=== PATIENT | female | born 1990 | race American Indian/Alaskan Native ===

== ENCOUNTER 2016-07-28 08:45 | Emergency (ER) | payer OTHER ==
[2016-07-28 10:15] LABS: Basophils % (Auto) 0.8 % (0.0-1.8); Hematocrit 38.3 % (30.3-42.9); Hemoglobin 12.6 gm/dl (10.1-14.3); Mean Corpuscular HGB Conc 33 % (30-34); Mean Corpuscular Hemoglobin 30 pg (28-32); Mean Corpuscular Volume 90 fl (79-97); Platelet Count 306 K/mm3 (140-440); Red Blood Count 4.27 M/mm3 (3.65-5.03); White Blood Count 6.1 K/mm3 (4.5-11.0)
[2016-07-28 10:32] LABS: Anion Gap 17 mmol/L; Blood Urea Nitrogen 5 mg/dL (7-17); Calcium 9.5 mg/dL (8.4-10.2); Carbon Dioxide 23 mmol/L (22-30); Chloride 102.8 mmol/L (98-107); Glucose 89 mg/dL (65-100); Potassium 3.6 mmol/L (3.6-5.0); Sodium 139 mmol/L (137-145)
[2016-07-28] MEDS ORDERED: NACL 0.9% 1000 ML 1,000 ML IV ONE ×2 (11:07→12:10)
--- NOTE | 2016-07-28 11:15 | Emergency Department Report ---
HPI - General Chief Complaint: Arrhythmia/Palpitations Time Seen by Provider: 07/28/16 10:53 - HPI HPI: Room 24 The patient is a 25-year-old female presenting with chief complaint of tachycardia. Patient was reportedly admitted to [facility] 07/24/2016 for unspecified psychosis. The patient's 1013 to nose paranoia, bizarre behavior, responding to internal stimuli. The patient reportedly has been tachycardic since her admission to [facility]. The patient was sent to the ED for evaluation of tachycardia. When asked how she is feeling currently the patient states annoying but otherwise no specific complaints. The patient states while at [facility] she sometime had shortness of breath. Patient states she is uncertain if she ever had chest pain. The patient admitted to vomiting once this morning while brushing her teeth which she describes as normal Location: [see above] Duration: [see above] Quality: Tachycardic Severity: Moderate Modifying factors: [see above] Context: [see above] Mode of transportation: [not driving] ED Past Medical Hx - Past Medical History Previous Medical History?: Yes Hx Psychiatric Treatment: Yes (hallucinations) - Surgical History Past Surgical History?: No - Family History Family history: no significant - Social History Smoking Status: Never Smoker Substance Use Type: None (denies illicit drug use), Alcohol (occasional) ED Review of Systems ROS: Stated complaint: ELEVATED HEART RATE Other details as noted in HPI Comment: All other systems reviewed and negative Constitutional: denies: chills, fever Eyes: denies: eye pain, eye discharge, vision change ENT: denies: ear pain, throat pain Respiratory: shortness of breath Cardiovascular: denies: palpitations Endocrine: no symptoms reported Gastrointestinal: vomiting Genitourinary: denies: urgency, dysuria, discharge Musculoskeletal: denies: back pain, joint swelling, arthralgia Skin: denies: rash, lesions Neurological: denies: headache, weakness, paresthesias Psychiatric: other (history of responding to internal stimuli) Hematological/Lymphatic: denies: easy bleeding, easy bruising Physical Exam - Physical Exam Vital Signs: Vital Signs 07/28/16 07/28/16 07/28/16 09:27 09:30 09:34 Temperature 98.2 F Pulse Rate 120 H 120 H Respiratory 16 17 Rate Blood Pressure 138/85 133/90 O2 Sat by Pulse 97 99 99 Oximetry 07/28/16 07/28/16 07/28/16 10:00 10:31 10:41 Temperature Pulse Rate 143 H 126 H Respiratory 13 11 L 11 L Rate Blood Pressure 143/98 133/91 O2 Sat by Pulse 100 98 98 Oximetry Physical Exam: GENERAL: The patient is well-developed well-nourished female sitting on stretcher not appearing to be in acute distress. [] HEENT: Normocephalic. Atraumatic. Extraocular motions are intact. Patient has moist mucous membranes. NECK: Supple. No meningitic signs are noted. There is no adenopathy noted. CHEST/LUNGS: Clear to auscultation. There is no respiratory distress noted. HEART/CARDIOVASCULAR: Regular. There is tachycardia. There is no gallop rub or murmur. ABDOMEN: Abdomen is soft, nontender. Patient has normal bowel sounds. There is no abdominal distention. SKIN: There is no rash. There is no edema. There is no diaphoresis. NEURO: The patient is awake, alert, and oriented. The patient is cooperative. The patient has no focal neurologic deficits. The patient has normal speech MUSCULOSKELETAL: There is no evidence of acute injury. ED Course Vital Signs 07/28/16 07/28/16 07/28/16 09:27 09:30 09:34 Temperature 98.2 F Pulse Rate 120 H 120 H Respiratory 16 17 Rate Blood Pressure 138/85 133/90 O2 Sat by Pulse 97 99 99 Oximetry 07/28/16 07/28/16 07/28/16 10:00 10:31 10:41 Temperature Pulse Rate 143 H 126 H Respiratory 13 11 L 11 L Rate Blood Pressure 143/98 133/91 O2 Sat by Pulse 100 98 98 Oximetry - Reevaluation(s) Reevaluation #1: 07/28/16 14:04 Patient persistently tachycardic at approximately 110 bpm. Patient status post 2 L IV fluids and 2 mg Ativan IV. Patient is calm but tachycardic ED Medical Decision Making - Lab Data Result diagrams: 07/28/16 10:02 07/28/16 10:02 Laboratory Tests 07/28/16 07/28/16 07/28/16 10:02 10:02 10:02 WBC 6.1 RBC 4.27 Hgb 12.6 Hct 38.3 MCV 90 MCH 30 MCHC 33 RDW 12.0 L Plt Count 306 Lymph % (Auto) 21.7 [place] % (Auto) 10.5 H Eos % (Auto) 4.0 Baso % (Auto) 0.8 Lymph # 1.3 [place] # 0.6 Eos # 0.2 Baso # 0.0 Seg Neutrophils % 63.0 Seg Neutrophils # 3.9 D-Dimer Sodium 139 Potassium 3.6 Chloride 102.8 Carbon Dioxide 23 Anion Gap 17 BUN 5 L Creatinine 0.5 L Estimated GFR > 60 BUN/Creatinine Ratio 10.00 Glucose 89 Calcium 9.5 Total Creatine Kinase 66 Troponin T < 0.010 TSH Free T4 HCG, Qual Urine Color Urine Turbidity Urine pH Ur Specific [place] Urine Protein Urine Glucose (UA) Urine Ketones Urine Blood Urine Nitrite Urine Bilirubin Urine Urobilinogen Ur Leukocyte Esterase Urine WBC (Auto) Urine RBC (Auto) U Epithel Cells (Auto) Urine Mucus Urine Opiates Screen Urine Methadone Screen Ur Barbiturates Screen Ur Phencyclidine Scrn Ur Amphetamines Screen U Benzodiazepines Scrn Urine Cocaine Screen U Marijuana (THC) Screen Drugs of Abuse Note 07/28/16 07/28/16 07/28/16 11:20 11:20 11:20 WBC RBC Hgb Hct MCV MCH MCHC RDW Plt Count Lymph % (Auto) [place] % (Auto) Eos % (Auto) Baso % (Auto) Lymph # [place] # Eos # Baso # Seg Neutrophils % Seg Neutrophils # D-Dimer 820.91 H Sodium Potassium Chloride Carbon Dioxide Anion Gap BUN Creatinine Estimated GFR BUN/Creatinine Ratio Glucose Calcium Total Creatine Kinase Troponin T < 0.010 TSH 0.845 Free T4 1.58 H HCG, Qual Urine Color Urine Turbidity Urine pH Ur Specific [place] Urine Protein Urine Glucose (UA) Urine Ketones Urine Blood Urine Nitrite Urine Bilirubin Urine Urobilinogen Ur Leukocyte Esterase Urine WBC (Auto) Urine RBC (Auto) U Epithel Cells (Auto) Urine Mucus Urine Opiates Screen Urine Methadone Screen Ur Barbiturates Screen Ur Phencyclidine Scrn Ur Amphetamines Screen U Benzodiazepines Scrn Urine Cocaine Screen U Marijuana (THC) Screen Drugs of Abuse Note 07/28/16 07/28/16 07/28/16 11:20 11:23 11:23 WBC RBC Hgb Hct MCV MCH MCHC RDW Plt Count Lymph % (Auto) [place] % (Auto) Eos % (Auto) Baso % (Auto) Lymph # [place] # Eos # Baso # Seg Neutrophils % Seg Neutrophils # D-Dimer Sodium Potassium Chloride Carbon Dioxide Anion Gap BUN Creatinine Estimated GFR BUN/Creatinine Ratio Glucose Calcium Total Creatine Kinase Troponin T TSH Free T4 HCG, Qual Negative Urine Color Yellow Urine Turbidity Cloudy Urine pH 9.0 H Ur Specific [place] 1.006 Urine Protein <15 mg/dl Urine Glucose (UA) Neg Urine Ketones Tr Urine Blood Neg Urine Nitrite Neg Urine Bilirubin Neg Urine Urobilinogen < 2.0 Ur Leukocyte Esterase Lg Urine WBC (Auto) 10.0 H Urine RBC (Auto) 3.0 U Epithel Cells (Auto) 23.0 H Urine Mucus 3+ Urine Opiates Screen Presumptive negative Urine Methadone Screen Presumptive negative Ur Barbiturates Screen Presumptive negative Ur Phencyclidine Scrn Presumptive negative Ur Amphetamines Screen Presumptive negative U Benzodiazepines Scrn Presumptive negative Urine Cocaine Screen Presumptive negative U Marijuana (THC) Screen Presumptive negative Drugs of Abuse Note Disclamer - EKG Data -: EKG Interpreted by Or EKG shows normal: sinus rhythm Rate: tachycardia (118 bpm) - Radiology Data Radiology results: report reviewed (CT chest), image reviewed (CT chest) CT chest (read by radiologist)-no evidence of PE - Differential Diagnosis hyperthyroidism, rhabdomyolysis, dehydration, PE Critical care attestation.: If time is entered above; I have spent that time in minutes in the direct care of this critically ill patient, excluding procedure time. ED Disposition Clinical Impression: Tachycardia, Psychosis Disposition: OP ADMITTED IP TO THIS HOSP Is pt being admited?: Yes Does the pt Need Aspirin: Yes Condition: Fair Referrals: PRIMARY CARE, [Primary Care Provider] - 3-5 Days Time of Disposition: 14:04 (hospitalist paged)
[2016-07-28 12:13] LABS: Urine Drugs of Abuse Note Disclamer
[2016-07-28 12:36] LABS: Bilirubin,Urine NEG (Negative); Blood,Urine NEG (Negative); Ketones,Urine TR mg/dL (Negative); Leukocyte Esterase,Urine LG (Negative); Mucus,Urine 3+ /HPF; Nitrite,Urine NEG (Negative); Protein,Urine <15 mg/dL mg/dL (Negative); Urobilinogen,Urine < 2.0 mg/dL (<2.0)
[2016-07-28] MEDS ORDERED: NACL ONE (12:51)
[2016-07-28] MEDS ORDERED: ATIVAN ONE (13:06)
--- NOTE | 2016-07-28 13:41 | Cat Scan Report ---
CTA CHEST INDICATION: Tachycardia. COMPARISON: None similar at this institution. FINDINGS: Chest CTA performed following intravenous administration of 100 cc of Omnipaque 350. Rotational MIP's also obtained. Normal heart size. No effusions. No aortic aneurysm, dissection or suspicious pulmonary arterial filling defects. No size significant adenopathy. Normal thymic contours. Normal airway. Unremarkable imaged thyroid. Clear lungs. Nonspecific distal esophageal prominence/thickening, not excluded for gastroesophageal reflux and/or hiatal hernia, amongst others. Images through included upper abdomen reveal no significant abnormality. Unremarkable bones. CONCLUSION: No CT evidence of pulmonary embolism with findings, as above. Thank you for the opportunity to participate in this patient's care.
--- NOTE | 2016-07-28 14:05 | Admit Criteria Form ---
Admission Criteria Documentation: TELEMETRY CARE Telemetry Admission Guidelines (Place 'X' for any and all applicable criteria): Admission to telemetry [A] may be indicated for ANY ONE of the following(1)(2)(3 )(4)(5): [X ]I. Cardiac disease, including ANY ONE of the following (9)(10)(11)(12)( 13): [ ]a) Postacute LA [ ]b) Low-risk patients with ST-segment elevation LA who have undergone successful percutaneous coronary intervention [ ]c) Unstable angina [ ]d) Suspected LA (until it is ruled out) [ ]e) Post cardiac surgery (first 48 to 72 hours unless complications occur) [X ]f) Acute arrhythmias (including significant tachycardia or bradycardia) [B] [ ]g) Firing of an implantable cardioverter defibrillator [C] [ ]h) Suspected pacemaker or implantable cardioverter defibrillator malfunction (10) [ ]i) New administration or adjustment of an antiarrhythmic drug [D ] [ ]j) Child admitted for acute congestive heart failure [ ]j) Long QT syndrome [ ]k) Advanced heart block (eg, second-degree Mobitz type II, third- degree heart block) [ ]l) Acute myocarditis or pericarditis [ ]m) Short-term (ambulatory or inpatient) monitoring after a cardiac procedure as indicated by ANY ONE of the following [E]: [ ]i) Electrophysiologic studies [ ]ii) Percutaneous coronary intervention with stent placement [ ]iii) Pacemaker placement with cardiac conduction defect [ ]iv) Implantable cardiac defibrillator placement [ ]II. Drug overdose or poisoning with substance that causes arrhythmias or QT prolongation (eg, phenothiazines, sympathomimetic agents, cyclic antidepressants, digitalis, antiarrhythmic drugs)(15) [ ]III. Short-term (ambulatory or inpatient) monitoring after therapeutic or diagnostic procedure requiring conscious sedation or anesthesia (eg, endoscopy, elective cardioversion) [ ]IV. Acute cerebrovascular even[F](18) [ ]V. Massive blood transfusion (eg, at least 10 units of packed red blood cells in 24 hours) [ ]. Variceal bleeding after endoscopy, sclerotherapy, or IV vasopressin [ ]VII. Uncorrected electrolyte abnormalities associated with an increased risk of dangerous arrhythmia [G]; examples include [ ]a) Hyperkalemia with attributable ECG changes [ ]b) Potassium greater than 6.5 mmol/L (mEq/L) in a patient without history of chronic renal disease [ ]c) Prolonged QT attributed to hypokalemia, hypomagnesemia, or hypocalcemia [ ]VIII.Unexplained syncope or other neurologic event suspected of being due to arrhythmia due to a finding that increases risk; examples include(19)(20)(21): [ ]a) High-risk ECG findings (eg, bifascicular block, bradycardia, abnormal QT interval, ventricular pre- excitation) [ ]b) History of previous syncope due to arrhythmia [ ]c) Abnormal ventricular function (eg, reduced ejection fraction ) [ ]d) Exertional or supine syncope [ ]e) Concerning syncope characteristics (eg, sudden loss of consciousness without prodrome) [ ]f) Family history of sudden [ ]g) Use of arrhythmogenic medication [ ]h) Suspected cardiac ischemia [ ]i) Known channelopathy (eg, long QT syndrome, Brugada syndrome, or catecholaminergic paroxysmal ventricular tachycardia) [ ]j) Known structural heart disease (eg, hypertrophic cardiomyopathy , severe valvular disease) [ ]k) Palpitations preceding syncope The original [employer] content created by [employer] has been revised. The portions of the content which have been revised are identified through the use of italic text or in bold, and [employer] has neither reviewed nor approved the modified material. All other unmodified content is copyright [employer]. Please see references footnoted in the original [employer] edition 2016
[2016-07-28 15:02] VITALS: BP 127/88
--- NOTE | 2016-07-28 15:07 | Event Note ---
Date: 07/28/16 Evaluated For Tachycardia--CTA negative UTI Dehydration D/c on Macrobid 100 po bid Lopressor 25 q 12 h
== END 2016-07-28 16:45 | disposition admitted as inpatient to this hospital (09) ==
LOC: ED 08:45
DX: R00.0 Tachycardia, unspecified (principal); F29 Unspecified psychosis not due to a substance or known physiological condition
CPT/HCPCS: 36415; 71275; 80048; 80307; 81001; 82550; 84439; 84443; 84484; 84703; 85025; 85379; 93005; 93010; 96360; 96361; 99285; J2060; J7030; Q9967